=== PATIENT | male | born 1955 | race Caucasian/White ===

== ENCOUNTER 2016-11-15 09:46 | Emergency (ER) | payer SELFPAY ==
[2016-11-15 09:58] VITALS: BP 128/75
--- NOTE | 2016-11-15 11:36 | RAD ---
HISTORY: Finger laceration COMPARISONS: None VIEWS: 3, Frontal, lateral, and oblique views of the third digit of the right hand FINDINGS: BONE DENSITY: Normal. BONES: There is a linear defect consistent with a small displaced fracture of the volar aspect of the tuft of the distal phalanx of the third digit JOINTS: There is no arthropathy. ALIGNMENT: There is no dislocation. SOFT TISSUES: Unremarkable. OTHER FINDINGS: None. IMPRESSION: LINEAR DEFECT CONSISTENT WITH NONDISPLACED FRACTURE OF THE TUFT OF THE DISTAL PHALANX OF THE THIRD DIGIT
[2016-11-15] MEDS ORDERED: Tetan/Diph/Pertus SYR(Tdap)* 0.5 ML SYR(BOOSTRIX) use SYR IM ONE (12:09)
[2016-11-15] MEDS ORDERED: ceFAZolin VIAL(*) 1 GM in NS 0.9% 50 ML* 50 ML IVPB ONE (12:09)
--- NOTE | 2016-11-15 13:21 | ED ---
Laceration/Wound HPI - HPI Summary HPI Summary: 60M presents with right ring finger laceration s/p getting his finger stuck in a conveyor belt today at work. He has full ROM of his finger. He does not know when his last tetanus was. He is not on any blood thinners. He denies any numbness or tingling. He is right handed. - History of Current Complaint Stated Complaint: RT HAND FINGER LAC Time Seen by Provider: 11/15/16 11:20 Pain Intensity: 7 - Allergy/Home Medications Allergies/Adverse Reactions: Allergies Allergy/AdvReac Type Severity Reaction Status Date / Time Cat Allergy Runny Nose Uncoded 06/13/16 07:44 PMH/Surg Hx/FS Hx/Imm Hx Endocrine/Hematology History: Denies: Hx Diabetes, Hx Thyroid Disease Cardiovascular History: Denies: Hx Angina, Hx Coronary Artery Disease, Hx Hypercholesterolemia, Hx Hypertension, Hx Myocardial Infarction, Hx Valvular Heart Disease Respiratory History: Denies: Hx Asthma, Hx Chronic Obstructive Pulmonary Disease (COPD) GI History: Reports: Hx Ulcer - 18 years ago Infectious Disease History: Reports: Hx Hepatitis - Hep C treated 2012 Denies: Hx Human Immunodeficiency Virus (HIV), History Other Infectious Disease, Traveled Outside the [place] in Last 30 Days - Family History Known Family History: Positive: Cardiac Disease, Hypertension - Social History Alcohol Use: Occasionally Alcohol Amount: 3 times a week Substance Use Type: Reports: None Smoking Status (MU): Former Smoker Type: Cigarettes Have You Smoked in the Last Year: No Review of Systems Negative: Fever Negative: Chest Pain Negative: Shortness Of Breath Positive: Other - laceration right ring finger All Other Systems Reviewed And Are Negative: Yes Physical Exam Triage Information Reviewed: Yes Vital Signs On Initial Exam: Initial Vitals Temp Pulse Resp BP Pulse Ox 97.8 F 54 18 128/75 100 11/15/16 09:53 11/15/16 09:53 11/15/16 09:53 11/15/16 09:53 11/15/16 09:53 Vital Signs Reviewed: Yes Appearance: Positive: Well-Appearing Skin: Positive: Warm, Dry, Other - 4cm laceration across DIP Head/Face: Positive: Normal Head/Face Inspection Eyes: Positive: Normal, Conjunctiva Clear Respiratory/Lung Sounds: Positive: Clear to Auscultation, Breath Sounds Present Cardiovascular: Positive: Normal, RRR Musculoskeletal: Positive: Strength/ROM Intact - of right ring finger, Other - capillary refill < 2 secs, good pulses, Procedures - Splinting Location: right ring finger Pre-Made Type: metal Splint: finger splint Pre-Proc Neuro Vasc Exam: normal - Laceration/Wound Repair 1 Location: Other - right ring finger Description: Linear Anesthesia: Digital, 1.0% Length, Depth and Shape: 4cm Betadine Prep?: Yes Irrigated w/ Saline (ccs): 500 Laceration/Wound Explored: clean Closure: Single Layer Suture Type: Prolene - 4-0 Number of Sutures: 7 Diagnostics - Vital Signs Vital Signs Temp Pulse Resp BP Pulse Ox 11/15/16 09:53 97.8 F 54 18 128/75 100 - Laboratory Lab Statement: Any lab studies that have been ordered have been reviewed, and results considered in the medical decision making process. - Radiology finger Xray Interpretation: Positive (See Comments) - IMPRESSION: LINEAR DEFECT CONSISTENT WITH NONDISPLACED FRACTURE OF THE TUFT OF THE DISTAL PHALANX OF THE THIRD DIGIT Radiology Interpretation Completed By: Radiologist Laceration Repair Course/Dx - Course Course Of Treatment: 60M presents with laceration to right ring finger from conveyor belt. has full ROM of finger. xray shows tuft fx. placed 7 sutures. gave tetanus and gram ancef. told to continue keflex and follow up with ortho or primary. patient understands and agrees with plan - Differential Dx Differental Diagnoses: Abrasion, Avulsion, Fracture, Laceration - Clinical Impression Provider Diagnoses: Laceration of right index finger, tuft fracture of right ring finger Discharge - Discharge Plan Condition: Good Disposition: HOME Prescriptions: Cephalexin CAP* [Keflex CAP*] 500 mg PO BID #14 cap Patient Education Materials: Care For Your Stitches (ED), Finger Fracture (ED) Forms: *Work Release Referrals: Stan ESQUIVEL,Amaury Domínguez. [Primary Care Provider] - Destiny Ross MD [Medical Doctor] - Additional Instructions: Take antibiotic twice a day for 7 days, take first dose tonight Keep finger in splint, change dressing once a day Follow up with ortho or primary for fracture Keep area clean and dry for 48 hours Take Tylenol or ibuprofen for pain every 6 hours Return to ED or primary for suture removal in 10-14 days Return to ED if develop signs of infection such as fever, spreading redness, or pus formation
== END 2016-11-15 13:42 | disposition home or self-care (01) ==
LOC: ED 09:46
DX: S61.210A Laceration without foreign body of right index finger without damage to nail, initial encounter (principal); S62.634A Displaced fracture of distal phalanx of right ring finger, initial encounter for closed fracture; W24.1XXA Contact with transmission devices, not elsewhere classified, initial encounter; B19.20 Unspecified viral hepatitis C without hepatic coma; Z87.891 Personal history of nicotine dependence; Y92.9 Unspecified place or not applicable
CPT/HCPCS: 12002; 73140; 90715; 96360; 96372; 99282; J0690